=== PATIENT | male | born 1985 | race Caucasian/White ===

== ENCOUNTER 2019-03-24 20:58 | Emergency (ER) | payer OTHER ==
[~2019-03-24] VITALS: Ht 172.7 cm; Wt 82.0 kg
[2019-03-24] MEDS ORDERED: IBUPROFEN 600MG TABLET PO STA (22:25)
[2019-03-24] MEDS ORDERED: SODIUM CHLORIDE 0.9% 1,000 ML IV ONE (22:25)
[2019-03-24 22:52] LABS: CHLORIDE 104 mEq/L (98-107)
[2019-03-24 22:54] LABS: PARTIAL THROMBOPLASTIN TIME 24.8 sec (23.4-31.0)
[2019-03-24 23:01] LABS: BASOPHILS % 0.2 % (0.0-2.0); EOSINOPHILS % 0.7 % (0.0-5.0); HEMATOCRIT. 43.7 % (42.0-52.0); HEMOGLOBIN. 15.5 g/dL (14.0-18.0); MEAN CORPUSCULAR HEMOGLOBIN 32.6 pg (28.0-32.0); MEAN CORPUSCULAR VOLUME 91.8 fL (80.0-94.0); MEAN PLATELET VOLUME 7.7 fl (7.4-10.4); MONOCYTES % 5.8 % (2.0-8.0); NEUTROPHILS % 83.3 % (40.0-76.0); PLATELET 215 x1000/uL (130-400); RED BLOOD CELL COUNT 4.76 mill/uL (4.7-6.1); RED CELL DISTRIBUTION WIDTH 12.5 % (11.6-14.6)
[2019-03-25 00:01] VITALS: BP 138/82
== END 2019-03-25 00:26 | disposition home or self-care (01) ==
LOC: ER 20:58
DX: S10.93XA Contusion of unspecified part of neck, initial encounter (principal); F12.10 Cannabis abuse, uncomplicated; M25.552 Pain in left hip; V49.49XA Driver injured in collision with other motor vehicles in traffic accident, initial encounter; Y93.89 Activity, other specified; Y92.89 Other specified places as the place of occurrence of the external cause; Y99.8 Other external cause status
CPT/HCPCS: 36415; 71045; 72125; 72170; 80053; 85025; 85610; 85730; 86850; 86900; 86901; 99284; J7030; Z7610